=== PATIENT | female | born 1970 | race Caucasian/White ===

== ENCOUNTER 2018-07-27 12:56 | Emergency (ER) | payer MEDICARE ==
[2018-07-27] MEDS ORDERED: IPRATRPIUM/ALBUTEROL 0.5/2.5MG 3 ML NEBU. ONE (13:05)
[2018-07-27] MEDS ORDERED: methylPREDNISolone SOD SUCC PF 125 MG/2 ML VIAL. IV ONE (13:15)
--- NOTE | 2018-07-27 13:27 | RAD ---
Chest, PA and Lateral: Technique: PA and lateral views of the chest were obtained. History: Shortness of breath. Comparison: None. Findings: The heart and pulmonary vasculature appear within normal limits. The lungs are clear. The pleural margins are clear. Impression: No acute chest process is seen. Electronically signed by: Farzad Gonzales MD (07/27/2018 1:24 PM) [facility]
[2018-07-27 13:28] LABS: BASO # 0.1 x10^3/uL (0.0-0.2); BASO % 1 % (0-3); EOS # 0.1 x10^3/uL (0.0-0.7); EOS % 1 % (0-3); HEMATOCRIT 46.4 % (36.0-47.0); HEMOGLOBIN 15.9 g/dL (12.0-15.5); LYMPH # 2.5 x10^3/uL (1.0-4.8); LYMPH % 40 % (24-48); MEAN CORPUSCULAR HEMOGLOBIN 30 pg (25-35); MEAN CORPUSCULAR HGB CONC 34 g/dL (31-37); MEAN CORPUSCULAR VOLUME 86 fL (79-100); MONO # 0.5 x10^3/uL (0.0-1.1); MONO % 8 % (0-9); NEUT # 3.1 x10^3uL (1.8-7.7); NEUT % 50 % (31-73); PLATELET COUNT 278 x10^3/uL (140-400); RED BLOOD COUNT 5.38 x10^6/uL (3.50-5.40); RED CELL DISTRIBUTION WIDTH 13.3 % (11.5-14.5); WHITE BLOOD COUNT 6.2 x10^3/uL (4.0-11.0)
[2018-07-27 13:36] VITALS: BP 155/106
[2018-07-27 13:37] LABS: CREATININE 0.8 mg/dL (0.6-1.0); GFR 77.6; POTASSIUM 3.9 mmol/L (3.5-5.1); TOTAL BILIRUBIN 0.3 mg/dL (0.2-1.0); TOTAL PROTEIN 7.9 g/dL (6.4-8.2)
--- NOTE | 2018-07-27 13:43 | PHYS DOC ---
Adult General Chief Complaint Chief Complaint: SHORTNESS OF BREATH HPI HPI Patient is a 47-year-old female who presents to the due to chief complaint of shortness of breath. Patient states that she's had a cough for the last 3-4 days. Patient states that she should've when she coughs. Patient does admit to being an active smoker. Patient denies alcohol use or drug use. Patient states that she has a history of high blood pressure but does not take any medications and she ran out of her medications since April 2018. Patient states that she had a fever yesterday. Currently patient denies fever, chills, nausea, vomiting , diarrhea, dysuria, chest pain. Review of Systems Review of Systems Constitutional: Denies fever or chills HENT: Reports nasal congestion Respiratory: Reports cough and shortness of breath Cardiovascular: Denies CP GI: Denies abdominal pain, nausea, vomiting or diarrhea : Denies dysuria or hematuria Musculoskeletal: Denies back pain or joint pain Skin: Denies rash or skin lesions Neurologic: Denies headache, focal weakness or sensory changes Complete systems were reviewed and found to be within normal limits, except as documented in this note. Current Medications Current Medications Current Medications Medications (Trade) Dose Ordered Sig/Jim Start Time Stop Time Status Last Admin Dose Admin Albuterol/ Ipratropium (Duoneb) 3 ml STK-MED ONCE 07/27/18 13:05 07/27/18 13:06 DC Methylprednisolone Sodium Succinate (SOLU-Medrol 125MG VIAL) 125 mg 1X ONCE 07/27/18 13:15 07/27/18 13:36 DC 07/27/18 13:35 125 MG Allergies Allergies Allergies Coded Allergies Type Severity Reaction Last Updated Verified Tetracyclines Allergy Unknown 07/27/18 Yes Physical Exam Physical Exam Constitutional: Well developed, well nourished, no acute distress, non-toxic appearance. HENT: Normocephalic, atraumatic, normocaphalic Eyes: PERRL, EOMI Neck: Normal range of motion, no tenderness, supple Cardiovascular:Heart rate regular rhythm, no murmur Resp: Bilateral ronchi Abdomen: Soft, no tenderness, no distension Skin: Warm, dry, no erythema, no rash. Back: No tenderness, no CVA tenderness. Extremities: No tenderness, ROM intact, no edema. Neurologic: Alert and oriented X 3, normal motor function, normal sensory function, no focal deficits noted. Psychologic: Affect normal, judgement normal, mood normal. Current Patient Data Vital Signs Vital Signs Date Time Temp Pulse Resp B/P (MAP) Pulse Ox O2 Delivery O2 Flow Rate FiO2 07/27/18 13:09 98 Room Air Lab Results Laboratory Tests Test 07/27/18 13:11 White Blood Count 6.2 x10^3/uL (4.0-11.0) Red Blood Count 5.38 x10^6/uL (3.50-5.40) Hemoglobin 15.9 g/dL (12.0-15.5) H Hematocrit 46.4 % (36.0-47.0) Mean Corpuscular Volume 86 fL (79-100) Mean Corpuscular Hemoglobin 30 pg (25-35) Mean Corpuscular Hemoglobin Concent 34 g/dL (31-37) Red Cell Distribution Width 13.3 % (11.5-14.5) Platelet Count 278 x10^3/uL (140-400) Neutrophils (%) (Auto) 50 % (31-73) Lymphocytes (%) (Auto) 40 % (24-48) Monocytes (%) (Auto) 8 % (0-9) Eosinophils (%) (Auto) 1 % (0-3) Basophils (%) (Auto) 1 % (0-3) Neutrophils # (Auto) 3.1 x10^3uL (1.8-7.7) Lymphocytes # (Auto) 2.5 x10^3/uL (1.0-4.8) Monocytes # (Auto) 0.5 x10^3/uL (0.0-1.1) Eosinophils # (Auto) 0.1 x10^3/uL (0.0-0.7) Basophils # (Auto) 0.1 x10^3/uL (0.0-0.2) Sodium Level 140 mmol/L (136-145) Potassium Level 3.9 mmol/L (3.5-5.1) Chloride Level 102 mmol/L (98-107) Carbon Dioxide Level 30 mmol/L (21-32) Anion Gap 8 (6-14) Blood Urea Nitrogen 6 mg/dL (7-20) L Creatinine 0.8 mg/dL (0.6-1.0) Estimated GFR (Cockcroft-Gault) 77.6 BUN/Creatinine Ratio 8 (6-20) Glucose Level 111 mg/dL (70-99) H Calcium Level 9.0 mg/dL (8.5-10.1) Total Bilirubin 0.3 mg/dL (0.2-1.0) Aspartate Amino Transferase (AST) 17 U/L (15-37) Alanine Aminotransferase (ALT) 13 U/L (14-59) L Alkaline Phosphatase 130 U/L (46-116) H Total Protein 7.9 g/dL (6.4-8.2) Albumin 4.0 g/dL (3.4-5.0) Albumin/Globulin Ratio 1.0 (1.0-1.7) EKG EKG EKG interpretation: 14:03 on 07/27/2018 Heart rate: 103 Sinus tachycardia Regular intervals Normal axis Nonspecific ST changes No STEMI Radiology/Procedures Radiology/Procedures Chest x-ray, labs, DuoNeb breathing treatment and IV Solu-Medrol. Chest, PA and Lateral: Technique: PA and lateral views of the chest were obtained. History: Shortness of breath. Comparison: None. Findings: The heart and pulmonary vasculature appear within normal limits. The lungs are clear. The pleural margins are clear. Impression: No acute chest process is seen. Electronically signed by: Farzad Gonzales MD (07/27/2018 1:24 PM) [facility] , PA and Lateral: Course & Med Decision Making Course & Med Decision Making Pertinent Labs and Imaging studies reviewed. (See chart for details) Chest x-ray, labs, DuoNeb breathing treatment and IV Solu-Medrol. Chest, PA and Lateral: Technique: PA and lateral views of the chest were obtained. History: Shortness of breath. Comparison: None. Findings: The heart and pulmonary vasculature appear within normal limits. The lungs are clear. The pleural margins are clear. Impression: No acute chest process is seen. Electronically signed by: Farzad Gonzales MD (07/27/2018 1:24 PM) [place] , PA and Lateral: Chest x-ray shows no acute disease. Labs are normal limits. Patient states that her breathing is better after the DuoNeb treatment. She is also received IV Solu-Medrol in ED. EKG shows no acute changes. Discussed results and plan of care with patient. Patient will be discharged with oral steroids,, cough medication. Patient is instructed to follow up with PCP in one to 2 days. Appropriate discharge instructions given to patient to return to duty at [facility]. Andrea Disclaimer Andrea Disclaimer This electronic medical record was generated, in whole or in part, using a voice recognition dictation system. Departure Departure: Impression: Primary Impression: Bronchitis Disposition: HOME, SELF-CARE Condition: IMPROVED Referrals: PCP,NO (PCP) in 1-2 days Patient Instructions: Acute Bronchitis, [id number] Additional Instructions: Please follow up with PCP 1-2 days. Please return to the ED if symptoms worsen or if any concerns. Scripts Benzonatate (TESSALON PERLE) 100 Mg Capsule 100 MG PO TID for Cough for 5 Days, #15 CAP Prov: TARYN SANDERS DO 07/27/18 Albuterol Sulfate (PROAIR HFA INHALER) 8.5 Gm Hfa.aer.ad 2 PUFF INH PRN Q6HRS PRN for SHORTNESS OF BREATH for 7 Days, #1 INHALER 0 Refills Prov: TARYN SANDERS DO 07/27/18 Prednisone (PREDNISONE) 20 Mg Tablet 40 MG PO DAILY for bronchitis for 5 Days, #10 TAB Prov: TARYN SANDERS DO 07/27/18 TARYN SANDERS DO Jul 27, 2018 13:43
[2018-07-27] MEDS ORDERED: BENZ100C PO (14:09)
[2018-07-27] MEDS ORDERED: ALBU2.5V8 INH (14:09)
[2018-07-27] MEDS ORDERED: PRED20TA PO (14:09)
[2018-07-27 14:46] LABS: INFLUENZA A PATIENT NEGATIVE (NEGATIVE); INFLUENZA B PATIENT NEGATIVE (NEGATIVE)
--- NOTE | 2018-07-27 18:28 | EKG ---
[address] [address] Test Date: 2018-07-27 Test Time: 14:03:22 Pat Name: GAVIOTA CARRIZALES Department: Room: Gender: F [place] Man: ABDIFATAH : 1970 Requested By: TARYN SANDERS Order Number: [id number] Reading MD: Tj Estevez Measurements Intervals [place] Rate: 103 P: 63 MA: 148 QRS: 60 QRSD: 80 T: 49 QT: 348 QTc: 458 Interpretive Statements SINUS TACHYCARDIA Electronically Signed On 08-03-2018 11:00:25 CONSUMER EDUCATOR by Tj Estevez
== END 2018-07-27 14:55 | disposition home or self-care (01) ==
LOC: ER 12:56
DX: J40 Bronchitis, not specified as acute or chronic (principal); I10 Essential (primary) hypertension; F17.200 Nicotine dependence, unspecified, uncomplicated; Z88.1 Allergy status to other antibiotic agents
CPT/HCPCS: 36415; 71046; 80053; 84484; 85025; 87804; 93005; 94640; 96374; 99284; J2930

== ENCOUNTER 2018-09-30 17:14 | Observation (INO) | payer OTHER ==
[~2018-09-30] VITALS: Ht 182.9 cm; Wt 70.0 kg
[~2018-09-30 17:14] MED LIST: ALBU2.5V8 INH; BENZ100C PO; PRED20TA PO
[2018-09-30] MEDS: IV NORMAL SALINE 1,000ML 1,000 ML IV SCH (17:49)
[2018-09-30] MEDS: ASPIRIN 81 MG TAB.CHEW PO ONE (17:49)
[2018-09-30 17:58] LABS: BASO # 0.1 x10^3/uL (0.0-0.2); BASO % 1 % (0-3); EOS # 0.1 x10^3/uL (0.0-0.7); EOS % 2 % (0-3); HEMATOCRIT 40.6 % (36.0-47.0); LYMPH # 4.1 x10^3/uL (1.0-4.8); LYMPH % 43 % (24-48); MEAN CORPUSCULAR HEMOGLOBIN 30 pg (25-35); MEAN CORPUSCULAR HGB CONC 35 g/dL (31-37); MEAN CORPUSCULAR VOLUME 87 fL (79-100); MONO # 0.5 x10^3/uL (0.0-1.1); MONO % 5 % (0-9); NEUT # 4.7 x10^3uL (1.8-7.7); NEUT % 49 % (31-73); PLATELET COUNT 353 x10^3/uL (140-400); RED BLOOD COUNT 4.69 x10^6/uL (3.50-5.40); RED CELL DISTRIBUTION WIDTH 13.2 % (11.5-14.5); WHITE BLOOD COUNT 9.5 x10^3/uL (4.0-11.0)
--- NOTE | 2018-09-30 17:59 | EKG ---
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
[2018-09-30 18:19] LABS: ALBUMIN/GLOBULIN RATIO 1.2 (1.0-1.7); CALCIUM 9.3 mg/dL (8.5-10.1); CREATININE 0.8 mg/dL (0.6-1.0); GFR 77.2; MAGNESIUM 2.1 mg/dL (1.8-2.4); POTASSIUM 3.9 mmol/L (3.5-5.1); TOTAL BILIRUBIN 0.3 mg/dL (0.2-1.0); TOTAL PROTEIN 7.3 g/dL (6.4-8.2)
--- NOTE | 2018-09-30 18:23 | RAD ---
PORTABLE CHEST 1V History: Chest pain. Heart size is not enlarged. No evidence of pneumothorax, pleural effusion or consolidating infiltrate. Regional skeleton is intact. IMPRESSION: No consolidating infiltrate. Electronically signed by: Juvenal Solis MD (09/30/2018 6:20 PM) [facility]
--- NOTE | 2018-09-30 19:10 | PHYS DOC ---
Past History Past Medical History: Asthma, Hypertension Past Surgical History: Appendectomy, Cholecystectomy, Hysterectomy, Tonsillectomy Alcohol Use: None Drug Use: None Adult General Chief Complaint Chief Complaint: CHEST PAIN HPI HPI Patient is a 48-year-old female who presents with complaint of chest discomfort and exertional dyspnea that has been intermittent over the last month. Patient states that symptoms are primarily present when she is exerting herself at work or when she walks up stairs. Currently she indicates that she has some very mild chest discomfort that she rates at about a 2 out of 10 but states that earlier today when she was at work and exerting herself it was a 5 out of 10. She denies having had any nausea, vomiting or diaphoresis. She describes the discomfort as tightness right now but states that earlier it was more like a dull pain. She also indicates that she has a history of asthma and it seems like her asthma flares up when she is exerting herself. Review of Systems Review of Systems Constitutional: Denies fever or chills [] Respiratory: Complains of exertional shortness of breath [] Cardiovascular: No additional information not addressed in HPI [] GI: Denies abdominal pain, nausea, vomiting or diarrhea [] Integument: Denies rash or skin lesions [] Neurologic: Denies headache, focal weakness or sensory changes [] All other systems were reviewed and found to be within normal limits, except as documented in this note. Current Medications Current Medications Current Medications Medications (Trade) Dose Ordered Sig/Jim Start Time Stop Time Status Last Admin Dose Admin Aspirin (Children'S Aspirin) 324 mg 1X ONCE 09/30/18 17:45 09/30/18 17:53 DC 09/30/18 17:49 324 MG Sodium Chloride 1,000 ml @ 1,000 mls/hr Q1H 09/30/18 17:43 09/30/18 18:42 DC 09/30/18 17:49 1,000 MLS/HR Allergies Allergies Allergies Coded Allergies Type Severity Reaction Last Updated Verified Tetracyclines Allergy Unknown 09/30/18 Yes Physical Exam Physical Exam Constitutional: Well developed, well nourished, no acute distress, non-toxic appearance. [] HENT: Normocephalic, atraumatic, bilateral external ears normal, oropharynx moist, no oral exudates, nose normal. [] Eyes: PERRLA, EOMI, conjunctiva normal, no discharge. [] Neck: Normal range of motion, no tenderness, supple, no stridor. [] Cardiovascular:Heart rate regular rhythm, no murmur [] Lungs & Thorax: Bilateral breath sounds clear to auscultation [] Abdomen: Bowel sounds normal, soft, no tenderness, no masses, no pulsatile masses. [] Skin: Warm, dry, no erythema, no rash. [] Back: No tenderness, no CVA tenderness. [] Extremities: No tenderness, no cyanosis, no clubbing, ROM intact, no edema. [] Neurologic: Alert and oriented X 3, normal motor function, normal sensory function, no focal deficits noted. [] Psychologic: Affect normal, judgement normal, mood normal. [] Current Patient Data Vital Signs Vital Signs Date Time Temp Pulse Resp B/P (MAP) Pulse Ox O2 Delivery O2 Flow Rate FiO2 09/30/18 18:39 61 18 171/95 (120) 100 Room Air 09/30/18 17:30 98.0 Lab Results Laboratory Tests Test 09/30/18 17:45 White Blood Count 9.5 x10^3/uL (4.0-11.0) Red Blood Count 4.69 x10^6/uL (3.50-5.40) Hemoglobin 14.0 g/dL (12.0-15.5) Hematocrit 40.6 % (36.0-47.0) Mean Corpuscular Volume 87 fL (79-100) Mean Corpuscular Hemoglobin 30 pg (25-35) Mean Corpuscular Hemoglobin Concent 35 g/dL (31-37) Red Cell Distribution Width 13.2 % (11.5-14.5) Platelet Count 353 x10^3/uL (140-400) Neutrophils (%) (Auto) 49 % (31-73) Lymphocytes (%) (Auto) 43 % (24-48) Monocytes (%) (Auto) 5 % (0-9) Eosinophils (%) (Auto) 2 % (0-3) Basophils (%) (Auto) 1 % (0-3) Neutrophils # (Auto) 4.7 x10^3uL (1.8-7.7) Lymphocytes # (Auto) 4.1 x10^3/uL (1.0-4.8) Monocytes # (Auto) 0.5 x10^3/uL (0.0-1.1) Eosinophils # (Auto) 0.1 x10^3/uL (0.0-0.7) Basophils # (Auto) 0.1 x10^3/uL (0.0-0.2) D-Dimer (Marta) 0.23 mg/L (0.00-0.50) Sodium Level 141 mmol/L (136-145) Potassium Level 3.9 mmol/L (3.5-5.1) Chloride Level 104 mmol/L (98-107) Carbon Dioxide Level 28 mmol/L (21-32) Anion Gap 9 (6-14) Blood Urea Nitrogen 6 mg/dL (7-20) L Creatinine 0.8 mg/dL (0.6-1.0) Estimated GFR (Cockcroft-Gault) 77.2 BUN/Creatinine Ratio 8 (6-20) Glucose Level 92 mg/dL (70-99) Calcium Level 9.3 mg/dL (8.5-10.1) Magnesium Level 2.1 mg/dL (1.8-2.4) Total Bilirubin 0.3 mg/dL (0.2-1.0) Aspartate Amino Transferase (AST) 16 U/L (15-37) Alanine Aminotransferase (ALT) 17 U/L (14-59) Alkaline Phosphatase 112 U/L (46-116) Troponin I Quantitative < 0.017 ng/mL (0-0.055) BQ-Rqu-T-Type Natriuretic Peptide 182 pg/mL (0-124) H Total Protein 7.3 g/dL (6.4-8.2) Albumin 4.0 g/dL (3.4-5.0) Albumin/Globulin Ratio 1.2 (1.0-1.7) EKG EKG EKG demonstrates normal sinus rhythm with rate of 70.[] Radiology/Procedures Radiology/Procedures [] Impressions: Chest x-ray demonstrates no acute process. Course & Med Decision Making Course & Med Decision Making Pertinent Labs and Imaging studies reviewed. (See chart for details) [] Dragon Disclaimer Dragon Disclaimer This electronic medical record was generated, in whole or in part, using a voice recognition dictation system. Departure Departure: Impression: Primary Impression: Chest pain Additional Impression: Exertional dyspnea Disposition: ADMITTED INPATIENT Admitting Physician: Curt Porter Condition: IMPROVED Referrals: CURT PORTER MD (PCP) Problem Qualifiers Primary Impression: Chest pain Chest pain type: unspecified Qualified Codes: R07.9 - Chest pain, unspecified TARA GIRARD Jr. DO September 30, 2018 19:10
[2018-09-30] MEDS ORDERED: ONDANSETRON PF 4 MG/2 ML VIAL. IV PRN (19:15)
[2018-09-30] MEDS ORDERED: NITROGLYCERIN SUBLINGUAL 0.4 MG BOTTLE OF 25. SL PRN (19:15)
[2018-09-30] MEDS ORDERED: MORPHINE SULFATE 4 MG/ML DISP.SYRIN. IV PRN (19:30)
[2018-09-30 20:02] VITALS: BP 154/98
[2018-09-30 23:38] VITALS: BP 127/80
[2018-10-01] MEDS: ALBUTEROL SULFATE 2.5 MG/3 ML NEBU. NEB PRN (04:09)
[2018-10-01 06:13] VITALS: BP 119/72
[2018-10-01] MEDS ORDERED: ALBUTEROL SULFATE 2.5 MG/3 ML NEBU. INH PRN (08:15)
--- NOTE | 2018-10-01 09:06 | PDOC2 ---
CONSULT Date of Admission DATE: 10/01/18 TIME: 09:05 Reason for Consult: cp Problem List Problems Medical Problems: (1) Chest pain Status: Acute (2) Exertional dyspnea Status: Acute History of Present Illness Ms Bonds is a 48 year old female who presented with complaints of chest pain. She describes 2 year history of intermittent left chest pressure occurring more frequently and for longer durations over the last year. Yesterday she experienced left chest "crushing pain" with radiation down left arm and associated shortness of breath. She reports pain is always exertional and functional capacity has decreased over the last 6 months. She also reports episodes of pain associated with increased emotional stress. She reports episodes of uncontrolled blood pressure but normally well controlled. She r eports pounding in her ears and chest pain when pressure is elevated. She denies other palpitations, lightheadedness or syncope. She denies congestive symptoms. She reports dyspnea and wheezing with exertion and uses her albuterol inhaler every day but has no other respiratory medications. She reports sometimes relief with inhaler, oftentimes has to rest as well to resolve dysp larisa. She denies congestive symptoms or significant edema Cardiovascular: HTN Pulmonary: Asthma GI: GERD Psych: Anxiety, Other (PTSD, memory loss due to TBI) Musculoskeletal: Other (chronic back pain) Past Surgical History: Appendectomy, Cholecystectomy, Hysterectomy Family History: Coronary Artery Disease, Stroke Social History + smoker, no significant ETOH, denies illicit drugs Current Medications Current Medications Aspirin (Children'S Aspirin) 324 mg 1X ONCE PO Last administered on 09/30/18at 17:49; Start 09/30/18 at 17:45; Stop 09/30/18 at 17:53; Status DC Sodium Chloride 1,000 ml @ 1,000 mls/hr Q1H IV Last administered on 09/30/18at 17:49; Start 09/30/18 at 17:43; Stop 09/30/18 at 18:42; Status DC Ondansetron HCl (Zofran) 4 mg PRN Q4HRS PRN IV NAUSEA/VOMITING; Start 09/30/18 at 19:15; Stop 10/01/18 at 19:14 Morphine Sulfate (Morphine 4mg Syringe) 2 mg PRN Q2HR PRN IV PAIN; Start 09/30/18 at 19:30 Nitroglycerin (Nitrostat) 0.4 mg PRN Q5MIN PRN SL CHEST PAIN; Start 09/30/18 at 19:15; Stop 10/01/18 at 19:14 Albuterol Sulfate (Ventolin) 2.5 mg PRN Q4HRS PRN NEB SHORTNESS OF BREATH Last administered on 10/01/18at 04:09; Start 10/01/18 at 04:00; Stop 10/01/18 at 08:18; Status DC Albuterol Sulfate (Ventolin) 2.5 mg PRN Q6HRS PRN INH SHORTNESS OF BREATH; Start 10/01/18 at 08:15 Active Scripts Active Proair Hfa Inhaler (Albuterol Sulfate) 8.5 Gm Hfa.aer.ad 2 Puff INH PRN Q6HRS PRN 7 Days Allergies: Coded Allergies: Sulfa (Sulfonamide Antibiotics) (Verified Allergy, Intermediate, 10/01/18) Tetracyclines (Verified Allergy, Intermediate, 10/01/18) Review of System as per HPI General: Alert, Oriented X3, Cooperative, No acute distress HEENT: Atraumatic, EOMI, Mucous membr. moist/pink Lungs: Clear to auscultation, Normal air movement Heart: Regular rate, Normal S1, Normal S2, Other (no gallops, clicks or rubs) Abdomen: Normal bowel sounds, Soft, No tenderness Extremities: No cyanosis, No edema, Normal pulses Neuro: Normal speech, Strength at 5/5 X4 ext Psych/Mental Status: Mental status NL, Mood NL VITALS Vital Signs Date Time Temp Pulse Resp B/P (MAP) Pulse Ox O2 Delivery O2 Flow Rate FiO2 10/01/18 06:13 97.8 63 18 119/72 (88) 95 Room Air Labs Laboratory Tests Test 09/30/18 17:45 09/30/18 22:00 10/01/18 01:10 White Blood Count 9.5 x10^3/uL (4.0-11.0) Red Blood Count 4.69 x10^6/uL (3.50-5.40) Hemoglobin 14.0 g/dL (12.0-15.5) Hematocrit 40.6 % (36.0-47.0) Mean Corpuscular Volume 87 fL (79-100) Mean Corpuscular Hemoglobin 30 pg (25-35) Mean Corpuscular Hemoglobin Concent 35 g/dL (31-37) Red Cell Distribution Width 13.2 % (11.5-14.5) Platelet Count 353 x10^3/uL (140-400) Neutrophils (%) (Auto) 49 % (31-73) Lymphocytes (%) (Auto) 43 % (24-48) Monocytes (%) (Auto) 5 % (0-9) Eosinophils (%) (Auto) 2 % (0-3) Basophils (%) (Auto) 1 % (0-3) Neutrophils # (Auto) 4.7 x10^3uL (1.8-7.7) Lymphocytes # (Auto) 4.1 x10^3/uL (1.0-4.8) Monocytes # (Auto) 0.5 x10^3/uL (0.0-1.1) Eosinophils # (Auto) 0.1 x10^3/uL (0.0-0.7) Basophils # (Auto) 0.1 x10^3/uL (0.0-0.2) D-Dimer (Marta) 0.23 mg/L (0.00-0.50) Sodium Level 141 mmol/L (136-145) Potassium Level 3.9 mmol/L (3.5-5.1) Chloride Level 104 mmol/L (98-107) Carbon Dioxide Level 28 mmol/L (21-32) Anion Gap 9 (6-14) Blood Urea Nitrogen 6 mg/dL (7-20) Creatinine 0.8 mg/dL (0.6-1.0) Estimated GFR (Cockcroft-Gault) 77.2 BUN/Creatinine Ratio 8 (6-20) Glucose Level 92 mg/dL (70-99) Calcium Level 9.3 mg/dL (8.5-10.1) Magnesium Level 2.1 mg/dL (1.8-2.4) Total Bilirubin 0.3 mg/dL (0.2-1.0) Aspartate Amino Transf (AST/SGOT) 16 U/L (15-37) Alanine Aminotransferase (ALT/SGPT) 17 U/L (14-59) Alkaline Phosphatase 112 U/L (46-116) Troponin I Quantitative < 0.017 ng/mL (0-0.055) 0.018 ng/mL (0-0.055) 0.022 ng/mL (0-0.055) FU-Rag-S-Type Natriuretic Peptide 182 pg/mL (0-124) Total Protein 7.3 g/dL (6.4-8.2) Albumin 4.0 g/dL (3.4-5.0) Albumin/Globulin Ratio 1.2 (1.0-1.7) Images EKG - sinus rhythm, no acute ischemic changes, CXR - IMPRESSION: No consolidating infiltrate. Assessment/Plan 1. progressive exertional chest pain consistent with angina. No acute EKG changes. Trop remains indeterminate. check echo and lipids. start beta blockers, aspirin and continue nitrates. ambulate. if no acute abn on echo and no reoccurrence of pain with exertion, plan for outpatient MPI. if pain reoc curs, plan transfer for cardiac cath. 2. labile hypertension - currently controlled pressure on no antihypertensives. adding beta aurora and check echo. 3. asthma - consider pulmonary eval and outpatient PFTs. 4. tobaccoism - cessation encouraged. AILEEN GILBERT APRN October 01, 2018 09:06
[2018-10-01] MEDS: METOPROLOL TART IMMED RELEASE 25 MG TABLET PO SCH (09:37)
[2018-10-01] MEDS: ASPIRIN ENTERIC COATED 81 MG TABLET.DR. PO SCH (09:37)
[2018-10-01 11:23] VITALS: BP 133/76
[2018-10-01] MEDS: NICOTINE 21MG PATCH. TD SCH (11:45)
[2018-10-02] MEDS ORDERED: NICOTINE 21MG PATCH. TD SCH (09:00)
== END 2018-10-01 13:45 | disposition short-term general hospital (02) ==
LOC: ER 17:14 → 1 SOUTH 19:10 → INTOOBSV 19:10
PROVIDERS: ADMIT Family Medicine; ATTEND Family Medicine
DX: I20.9 Angina pectoris, unspecified (principal); I10 Essential (primary) hypertension; K21.9 Gastro-esophageal reflux disease without esophagitis; J45.909 Unspecified asthma, uncomplicated; G89.29 Other chronic pain; F43.10 Post-traumatic stress disorder, unspecified; F41.9 Anxiety disorder, unspecified; F17.200 Nicotine dependence, unspecified, uncomplicated; Z90.710 Acquired absence of both cervix and uterus; Z90.49 Acquired absence of other specified parts of digestive tract; Z82.49 Family history of ischemic heart disease and other diseases of the circulatory system; Z82.3 Family history of stroke; Z79.899 Other long term (current) drug therapy; Z88.2 Allergy status to sulfonamides; Z88.8 Allergy status to other drugs, medicaments and biological substances
CPT/HCPCS: 36415; 71045; 80053; 80061; 83735; 83880; 84484; 85025; 85379; 93005; 94640; 99284; G0378; G0379; J7613; J7030

== ENCOUNTER 2019-02-19 15:44 | Emergency (ER) | payer OTHER ==
[~2019-02-19] VITALS: Ht 182.9 cm; Wt 69.9 kg
[2019-02-19 15:44] VITALS: BP 130/71
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
[2019-02-19] MEDS ORDERED: KETOROLAC 30 MG/ML VIAL. IV ONE (16:45)
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
[2019-02-19] MEDS ORDERED: MELO7.5T29 PO (17:33)
[2019-02-19] MEDS ORDERED: ORPH-16 PO (17:33)
== END 2019-02-19 18:06 | disposition home or self-care (01) ==
LOC: ER 15:44
DX: S16.1XXA Strain of muscle, fascia and tendon at neck level, initial encounter (principal); M25.512 Pain in left shoulder; J45.909 Unspecified asthma, uncomplicated; I10 Essential (primary) hypertension; Z88.2 Allergy status to sulfonamides; Z88.1 Allergy status to other antibiotic agents; V43.52XA Car driver injured in collision with other type car in traffic accident, initial encounter; Y93.I9 Activity, other involving external motion; Y92.488 Other paved roadways as the place of occurrence of the external cause; Y99.8 Other external cause status
CPT/HCPCS: 72040; 73030; 96374; 99284; J1885

== ENCOUNTER 2021-01-28 16:14 | Emergency (ER) | payer OTHER ==
[~2021-01-28] VITALS: Ht 182.9 cm; Wt 75.0 kg
[~2021-01-28 16:14] MED LIST changes: +MELO7.5T29 PO; +ORPH-16 PO
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
[2021-01-28] MEDS ORDERED: IBUPROFEN 600 MG TABLET. PO ONE (20:30)
[2021-01-28 20:35] VITALS: BP 140/83
== END 2021-01-28 20:35 | disposition home or self-care (01) ==
LOC: ER 16:14
DX: S90.32XA Contusion of left foot, initial encounter (principal); J45.909 Unspecified asthma, uncomplicated; I10 Essential (primary) hypertension; Z88.2 Allergy status to sulfonamides; Z88.1 Allergy status to other antibiotic agents; W20.8XXA Other cause of strike by thrown, projected or falling object, initial encounter; Y93.89 Activity, other specified; Y92.89 Other specified places as the place of occurrence of the external cause; Y99.8 Other external cause status
CPT/HCPCS: 73630; 99283